=== PATIENT | female | born 1990 | race Two or more races ===

== ENCOUNTER 2020-02-25 11:55 | Emergency (ER) | payer OTHER ==
[~2020-02-25] VITALS: Ht 167.6 cm; Wt 74.8 kg
--- NOTE | 2020-02-25 12:28 | NUR ---
ED Nurse Note: Patient presents to ER due to SOB x 2 days; denies any CP, cough, fever, chills or loss of taste or smell. Patient states she is in "a lot of stress, I have to move out, I just lost my job'. Patient became tearful. Provided comfort measures and privacy. Patient attempted to relive stress/SOB by doing medication. Patient awake, alert, oriented x 4. Regular, unlabored breathing noted. Pulse oximetry reading maintaining @ 98% on room air while she is talking to this RN. Maintained contact/airborne precaution.
--- NOTE | 2020-02-25 12:59 | Emergency Room Report ---
History of Present Illness General Chief Complaint: Upper Respiratory Illness Source: Patient Present Illness HPI 29-year-old female presents to the emergency department complaining of increasing anxiousness and perceived increase in stress/worrying. Patient states that on occasion she feels as though more effort goes into having to consciously breathe. Patient reports a generalized discomfort intermittently. She denies pain. Patient denies hyperventilation. She reports on occasion she has had some numbness and tingling in the bilateral fingers that resolved spontaneously after several minutes. Patient states she is also been somewhat tearful. Patient states she recently lost her job and is now having to move in with her boyfriend whom she reports is a "toxic "relationship. She denies physical abuse. Patient reports increase of her symptoms while having to pack up her belongings. PT. reports she is also in the middle of studying for entrance examinations. Patient states her symptoms have been going on for 1 week and have increased in frequency of interrupting her daily activities. She denies personal or familial cardiac history. She denies hemoptysis, cough, fevers or chills, asthma or COPD. Patient denies taking control. She denies recent travel or prolonged periods of immobilization. She denies swelling of the lower extremities or calf pain. She reports history of intermittently smoking 1 or 2 cigarettes socially but states it was never anything consistent. She describes usually on a weekend night and estimates approximately 2 or 3 times per month in the past. She reports caffeine use: pre-workout supplements daily. She denies , suspicion of or feeling palpitations/racing heart. Patient denies dizziness or syncope. She denies headache. Denies Si/HI. Denies PSA's. Denies daily sadness/depression. Pt. reports exercising regularly. No other aggravating or relieving factors. Allergies: Coded Allergies: No Known Allergies (Unverified , 02/25/20) COVID-19 Screening Contact w/high risk pt: No Experienced COVID-19 symptoms?: No COVID-19 Testing performed WORD PROCESSOR OPERATOR: No Patient History Past Medical History: see triage record Past Surgical History: none Pertinent Family History: none Now: No Reviewed Nursing Documentation: PMH: Agreed; PSxH: Agreed Nursing Documentation-PMH Past Medical History: No Stated History Review of Systems All Other Systems: negative except mentioned in HPI Physical Exam Vital Signs Date Time Temp Pulse Resp B/P (MAP) Pulse Ox O2 Delivery O2 Flow Rate FiO2 02/25/20 12:10 99.3 66 17 106/61 (76) 98 Room Air Sp02 EP Interpretation: reviewed, normal General Appearance: no apparent distress, alert, GCS 15, non-toxic Head: normocephalic, atraumatic Eyes: bilateral eye normal inspection, bilateral eye PERRL ENT: hearing grossly normal, normal voice Neck: full range of motion, supple/symm/no masses Respiratory: chest non-tender, lungs clear, normal breath sounds, no respiratory distress, no accessory muscle use, no wheezing, speaking full sentences Cardiovascular #1: regular rate, rhythm, no edema, no murmur, normal capillary refill Cardiovascular #2: 2+ radial (R) Gastrointestinal: non tender, soft Musculoskeletal: normal range of motion, gait/station normal, non-tender Neurologic: alert, motor strength/tone normal, oriented x3, sensory intact, responsive, speech normal Psychiatric: judgement/insight normal, memory normal, no suicidal/homicidal ideation, no delusions, anxious, other - intermittently tearful Suicide Risk Assessment: Suicidal Ideation: No Had intent to initiate attempt: No Pt's plan for suicide attempt: No Has means to complete attempt: No Skin: no rash, normal color Medical Decision Making PA Attestation Dr. Elizabeth is my supervising Physician whom patient management has been discussed with. Diagnostic Impression: Primary Impression: Anxiety as acute reaction to exceptional stress Additional Impression: Painful respiratory movement ER Course 29-year-old female presents to the emergency department complaining of increasing anxiousness and perceived increase in stress/worrying. Patient stat es that on occasion she feels as though more effort goes into having to consciously breathe. Patient reports a generalized discomfort intermittently. She denies pain. Patient denies hyperventilation. She reports on occasion she has had some numbness and tingling in the bilateral fingers that resolved spontaneously after several minutes. Patient states she is also been somewhat tearful. Patient states she recently lost her job and is now having to move in with her boyfriend whom she reports is a "toxic "relationship. She denies physical abuse. Patient reports increase of her symptoms while having to pack up her belongings. PT. reports she is also in the middle of studying for entrance examinations. Patient states her symptoms have been going on for 1 week and have increased in frequency of interrupting her daily activities. She denies personal or familial cardiac history. She denies hemoptysis, cough, fevers or chills, asthma or COPD. Patient denies taking control. She denies recent travel or prolonged periods of immobilization. She denies swelling of the lower extremities or calf pain. She reports history of intermittently smoking 1 or 2 cigarettes socially but states it was never anything consistent. She describes usually on a weekend night and estimates approximately 2 or 3 times per month in the past. She reports caffeine use: pre-workout supplements daily. She denies , suspicion of or feeling palpitations/racing heart. Patient denies dizziness or syncope. She denies headache. Denies Si/HI. Denies PSA's. Denies daily sadness/depression. Pt. reports exercising regularly. No other aggravating or relieving factors. Ddx considered but are not limited to anxiety, ME, PE, asthma, thyroid storm, hyperthyroid, EPS Vital signs: are WNL, pt. is afebrile H&PE are most consistent with generalized anxiety in response to emotional / social event. - intermittent in nature. Patient is not have any cardiac risk factors no familial cardiac risk factors. Wells criteria of 0. She is non- tachycardic she is oxygenating at 90% or above on room air without evidence of increased respiratory effort or respiratory distress. ORDERS: Dx is primarily clinical, diagnostics also serve therapeutic/reassurance purposes. - CXR: unremarkable -EK sinus denis. ED INTERVENTIONS: - 0.5mg Ativan Pt. is much calmer after interventions. [facility] follow up was d/w her. Gave pt. copy of her EKG and CXR. d/w pt. -I do not identify an emergent condition at this time. With current presentation, pt. is stable for close outpatient follow up and conservative treatment. D/w pt. to return promptly to ED with worsening or new symptoms.- Pt. verbalizes' understanding and agreement with proposed treatment plan. DISCHARGE: At this time pt. is stable for d/c to home. Will provide printed patient care instructions, and any necessary prescriptions. Care plan and follow up instructions have been discussed with the patient prior to discharge. EKG Diagnostic Results Troponin ordered: No - NO cardiac RF's, no RF for PE , no ischemic changes on EKG, no hypoxia EKG Time: 13:18 Rate: bradycardiac - 54 bpm Rhythm: NSR ST Segments: no acute changes Other Impression of consideration: sinus denis c/w person who exercises regularly. ASA given to the pt in ED: No PA Scribe Text This Interpretation was scribed by JOSUÉ Olsen. Chest X-Ray Diagnostic Results Chest X-Ray Diagnostic Results : Chest X-Ray Ordered: Yes # of Views/Limited/Complete: 1 View Indication: Shortness of Breath EP Interpretation: Yes PA Xray: Interpretation reviewed, by supervising MD, and agrees with findings. Interpretation: no consolidation, no effusion, no pneumothorax, no acute cardiopulmonary disease Impression: No acute disease Electronically Signed by: Angie Olsen PA-C Last Vital Signs Date Time Temp Pulse Resp B/P (MAP) Pulse Ox O2 Delivery O2 Flow Rate FiO2 02/25/20 12:32 72 18 Room Air 02/25/20 12:10 99.3 106/61 (76) 98 Status: improved Disposition: HOME, SELF-CARE Condition: Stable Scripts Hydroxyzine Pamoate (VISTARIL) 25 Mg Capsule 25 MG PO QHS, #20 CAP Prov: Angie Olsen 02/25/20 Referrals: [facility] [place] Patient Instructions: Generalized Anxiety Disorder, Shortness of Breath, [id number] Additional Instructions: Take medications as directed. !!TODAY: Do not drink alcohol, drive, or operate heavy machinery while taking ATIVAN ( GIVEN AT YOUR ED VISIT ) as this may cause drowsiness. Follow up with a Primary Care Provider in 3-5 days, even if your symptoms have resolved. [facility] Urgent Care follow up, open 17/10 --Please review list of primary care clinics, if you do not already have a primary care provider Return sooner to ED if new symptoms occur, or current symptoms become worse. - Please note that this Emergency Department Report was dictated using [employer] service captain technology software, occasionally this can lead to erroneous entry secondary to interpretation by the dictation equipment. Angie Olsen Feb 25, 2020 12:59
--- NOTE | 2020-02-25 13:24 | NUR ---
ED Nurse Note: Patient resting in bed. No faciai grimacing or guarding noted.
[2020-02-25] MEDS ORDERED: LORazepam 1mg tab ORAL ONE (13:30)
[2020-02-25] MEDS ORDERED: LORazepam 0.5mg tab ORAL ONE (13:45)
--- NOTE | 2020-02-25 14:07 | NUR ---
ED Nurse Note: Waiting for result before administering med.
--- NOTE | 2020-02-25 14:20 | NUR ---
ED Nurse Note: Patient agreed not to drink alchol, drive or operate heavy machine while taking Ativan. Patient attempted to arrage transportation home by calling boyfriend, but no significant or family member available at this time. Tyrone Adams made aware that patient will be going home by taxi (Lyft) and ordered to administer Ativan 0.5mg at this time.
[2020-02-25] MEDS ORDERED: VISTARIL25 M1 PO (14:23)
--- NOTE | 2020-02-25 14:35 | NUR ---
ED Nurse Note: vs documented seperately upon discharge.
[2020-02-25 14:41] VITALS: BP 94/61
[2020-02-25 14:42] VITALS: BP 94/61
--- NOTE | 2020-02-25 14:43 | NUR ---
ED Nurse Note: Patient is cleared for discharg by ERMD. Patient reports decreased anxiety and denies any dizziness or drowsiness. Patient is going home by taxi. Patient ambulated out with steady gait with all her belongings.
--- NOTE | 2020-02-25 14:43 | NUR ---
ER DISCHARGE NOTE: Patient is cleared to be discharged per ERMD. Patient awake, alert, oriented x 4. D/C instruction and prescription given to patient. Patient verbalized understanding of it.
--- NOTE | 2020-02-25 16:05 | Diagnostic Imaging Report ---
Indication: Chest pain Technique: One view of the chest Comparison: none Findings: Lungs and pleural spaces are clear. Heart size is normal. Impression: No acute process
--- NOTE | 2020-02-28 13:04 | Cardiology Report ---
APPROVED REPORT EKG Measurement Heart [id number] <Conclusion> Sinus bradycardia Otherwise normal ECG
== END 2020-02-25 14:45 | disposition home or self-care (01) ==
LOC: EMR 12:25
DX: F41.1 Generalized anxiety disorder (principal); F43.0 Acute stress reaction; R07.1 Chest pain on breathing
CPT/HCPCS: 71045; 81025; 93005; Z7502; 99284